=== PATIENT | female | born 1975 | race Two or more races ===

== ENCOUNTER 2020-12-08 20:17 | Emergency (ER) | payer OTHER ==
[~2020-12-08] VITALS: Ht 167.6 cm; Wt 80.7 kg
[2020-12-09] VITALS: BP 146/56
== END 2020-12-09 01:20 | disposition home or self-care (01) ==
LOC: ER 20:19
DX: S05.02XA Injury of conjunctiva and corneal abrasion without foreign body, left eye, initial encounter (principal); H53.142 Visual discomfort, left eye; X58.XXXA Exposure to other specified factors, initial encounter; Y93.89 Activity, other specified; Y92.89 Other specified places as the place of occurrence of the external cause; Y99.8 Other external cause status